=== PATIENT | female | born 1955 | race Two or more races ===

== ENCOUNTER 2021-12-15 11:55 | Inpatient (IN) | payer OTHER ==
[~2021-12-15] VITALS: Ht 154.9 cm; Wt 45.4 kg
[2021-12-15] MEDS ORDERED: NORVASC5 MG PO (12:06)
[2021-12-15] MEDS ORDERED: ZOLOFT100 MG PO (12:06)
== END 2021-12-17 15:56 | disposition home or self-care (01) | DRG 554 ==
LOC: ER 11:55 → SEC-K 19:43 → SURG 12-16 15:05
PROVIDERS: ADMIT Internal Medicine; ATTEND Internal Medicine
DX: M19.021 Primary osteoarthritis, right elbow (principal); R53.1 Weakness; M79.18 Myalgia, other site; E87.6 Hypokalemia; F32.89 Other specified depressive episodes; I10 Essential (primary) hypertension